=== PATIENT | female | born 1995 | race Caucasian/White ===

== ENCOUNTER 2020-01-26 03:58 | Inpatient (IN) ==
[2020-01-26] MEDS ORDERED: LACTATED RINGERS 500 ML IV PRN (04:09)
[2020-01-26] MEDS ORDERED: BUTORPHANOL 2 MG/ML VIAL IV PRN (04:09)
[2020-01-26] MEDS ORDERED: ONDANSETRON 4 MG/2 ML VIAL IV PRN (04:09)
[2020-01-26] MEDS ORDERED: MEPERIDINE 50 MG/1 ML VIAL IV PRN (04:09)
[2020-01-26] MEDS ORDERED: LACTATED RINGERS 1,000 ML IV SCH (04:30)
[2020-01-26] MEDS ORDERED: OXYTOCIN/LR 20 UNIT/1,000 ML BAG IV SCH (05:00)
[2020-01-26 05:10] LABS: Basophils # 0.1 10*3/uL (0.0-0.2); Basophils % 0.4 % (0.0-0.8); Eosinophils # 0.1 10*3/uL (0.0-0.87); Eosinophils % 0.6 % (0.00-10.9); Hematocrit 33.4 VOL% (35.7-47.0); Hemoglobin 11.3 GM/DL (12.0-16.0); Immature Granulocytes % 0.5 %; Immature Granulocytes Absolute 0.06 #; Lymphocytes # 2.9 10*3/uL (1.4-4.0); Lymphocytes % 23.8 % (21.3-54.2); Mean Corpuscular HGB Conc 33.8 GM/DL (32-36); Mean Corpuscular Volume 89.3 FL (87-102); Monocytes % 8.4 % (1.7-12.7); Neutrophils % 66.3 % (38.7-73.9); Platelet Count 254 T/CUMM (130-400); Red Blood Count 3.74 MC/CUMM (3.8-5.5); Red Cell Distribution Width 12.4 % (9.3-17.3)
[2020-01-26 05:35] LABS: Albumin 2.8 G/DL (3.4-5.0); Bilirubin,Total 0.7 MG/DL (0.2-1.0); Calcium 9.2 MG/DL (8.5-10.1); Osmolality,Calculated 270.8 MOS/KG (273-304)
[2020-01-26] MEDS ORDERED: ALUMINUM/MAGNES/SIMETH MAX STR 30 ML UDCUP PO PRN (05:42)
[2020-01-26] MEDS ORDERED: diphenhydrAMINE 50 MG/1 ML VIAL IV PRN ×2 (09:09)
[2020-01-26] MEDS ORDERED: FAMOTIDINE 20 MG/2 ML VIAL IV ONE (09:09)
[2020-01-26] MEDS ORDERED: CITRIC ACID/SODIUM CITRATE 30 ML UDCUP PO ONE (09:09)
[2020-01-26] MEDS ORDERED: ONDANSETRON 4 MG/2 ML VIAL IV ONE (09:09)
[2020-01-26] MEDS ORDERED: LACTATED RINGERS 1,000 ML IV ONE (09:09)
[2020-01-26] MEDS ORDERED: NALOXONE 0.4 MG/ML VIAL IV PRN (09:09)
[2020-01-26] MEDS ORDERED: ePHEDrine 50 MG/ML VIAL IV PRN (09:09)
[2020-01-26] MEDS ORDERED: PROMETHAZINE 25 MG/1 ML VIAL IM ONE (09:09)
[2020-01-26] MEDS ORDERED: hydrOXYzine HCL 25 MG/1 ML VIAL IM PRN (09:09)
[2020-01-26] MEDS ORDERED: fentaNYL 2 MCG/ROPIV 0.2% EPID 100 ML EPIDURAL ONE (09:16)
[2020-01-26] MEDS: fentaNYL 2 MCG/ROPIV 0.2% EPID 100 ML EPIDURAL SCH ×2 (09:45→15:16)
[2020-01-26 11:43] LABS: Apearance,Urine CLEAR (Clear); Bilirubin,Urine Negative (Negative); Blood, Urine Negative (Negative); Glucose,Urine (UA) Negative (Negative); Ketones,Urine Negative (Negative); Mucus,Urine Occasional /LPF (Occasional); Nitrite,Urine Negative (Negative); Protein,Urine Negative; RBC,Urine <1 /HPF (0-4); Squamous Epithelial Cell,Urine Occasional /HPF (0-10); Urine Color Straw (Yellow); Urine Specific Gravity 1.012 (1.001-1.035); Urine Urobilinogen < 2.0 EU/DL (0.2-1.0); WBC,Urine <1 /HPF (0-6)
[2020-01-26] MEDS ORDERED: TRANEXAMIC ACID 1,000 MG/10 ML VIAL ONE (16:15)
[2020-01-26] MEDS ORDERED: CARBOPROST TROMETHAMINE 250 MCG/ML AMP IM ONE (16:15)
[2020-01-26] MEDS ORDERED: METHYLERGONOVINE 0.2 MG/1 ML AMP ONE (16:15)
[2020-01-26] MEDS ORDERED: miSOPROStoL 200 MCG TABLET ONE (16:15)
[2020-01-26] MEDS ORDERED: LIDOCAINE 1% 50 ML VIAL ONE (16:16)
[2020-01-26] MEDS ORDERED: SODIUM CHLORIDE 0.9% 0 ML IV ONE (16:16)
[2020-01-26 17:36] LABS: Cord Arterial Blood HCO3 17.1 MMOL/L
[2020-01-26 17:39] LABS: Cord Venous Blood HCO3 17.2 MMOL/L; Cord Venous Blood PCO2 42.4 MMHG; Cord Venous Blood PO2 32.1
[2020-01-26] MEDS ORDERED: OXYTOCIN/LR 20 UNIT/1,000 ML BAG IV ONE (19:26)
[2020-01-26] MEDS ORDERED: WITCH HAZEL PADS 100/JAR TOP PRN (19:26)
[2020-01-26] MEDS ORDERED: LANOLIN 50% CREAM 0.3 OZ TUBE TOP PRN (19:26)
[2020-01-26] MEDS ORDERED: DIPH/TET/ACEL PERT BOOSTER VACCINE 0.5 ML VIAL IM ONE (19:26)
[2020-01-26] MEDS ORDERED: ACETAMINOPHEN 325 MG TABLET PO PRN (19:26)
[2020-01-26] MEDS ORDERED: MEASLES/MUMPS/RUBELLA VACCINE 0.5 ML VIAL SUBCUT ONE (19:26)
[2020-01-26] MEDS ORDERED: oxyCODONE/ACETAMINOPHEN 5-325 MG TABLET PO PRN (19:26)
[2020-01-26] MEDS ORDERED: BISACODYL 10 MG SUPP RECTAL PRN (19:26)
[2020-01-26] MEDS ORDERED: HYDROCORTISONE 2.5% RECTAL CREAM 30 GM TUBE TOP PRN (19:26)
[2020-01-26] MEDS ORDERED: BENZOCAINE 20%/MENTHOL 0.5% SPRAY 56 GM CAN TOP PRN (19:26)
[2020-01-26] MEDS ORDERED: RHO(D) IMMUNE GLOBULIN 300 MCG SYRINGE IM ONE (19:26)
[2020-01-26] MEDS: IBUPROFEN 800 MG TABLET PO PRN (19:34)
[2020-01-26] MEDS: DOCUSATE SODIUM 100 MG CAPSULE PO SCH (22:11)
[2020-01-27 05:30] LABS: Basophils # 0.1 10*3/uL (0.0-0.2); Basophils % 0.4 % (0.0-0.8); Eosinophils % 0.2 % (0.00-10.9); Hematocrit 31.6 VOL% (35.7-47.0); Hemoglobin 10.6 GM/DL (12.0-16.0); Immature Granulocytes % 0.5 %; Immature Granulocytes Absolute 0.08 #; Lymphocytes # 2.5 10*3/uL (1.4-4.0); Lymphocytes % 14.1 % (21.3-54.2); Mean Corpuscular HGB Conc 33.5 GM/DL (32-36); Mean Corpuscular Volume 91.1 FL (87-102); Mean Platelet Volume 10.7 FL (9.6-12.0); Monocytes % 9.2 % (1.7-12.7); Neutrophils % 75.6 % (38.7-73.9); Platelet Count 198 T/CUMM (130-400); Red Blood Count 3.47 MC/CUMM (3.8-5.5); Red Cell Distribution Width 12.6 % (9.3-17.3); White Blood Count 17.4 T/CUMM (4-12)
[2020-01-27] MEDS: DOCUSATE SODIUM 100 MG CAPSULE PO SCH ×2 (07:28→21:51)
[2020-01-27] MEDS: oxyCODONE/ACETAMINOPHEN 5-325 MG TABLET PO PRN ×2 (07:28→18:01)
[2020-01-27] MEDS: IBUPROFEN 800 MG TABLET PO PRN (11:02)
[2020-01-28] MEDS: IBUPROFEN 800 MG TABLET PO PRN ×2 (01:53→14:51)
[2020-01-28] MEDS: oxyCODONE/ACETAMINOPHEN 5-325 MG TABLET PO PRN (03:31)
[2020-01-28] MEDS: DOCUSATE SODIUM 100 MG CAPSULE PO SCH (08:35)
[2020-01-28 12:33] VITALS: BP 104/58
== END 2020-01-28 15:50 | disposition home or self-care (01) | DRG 807 ==
LOC: N.LDOUT 03:58 → N.LD 04:01 → N.OB 21:18
PROVIDERS: ADMIT Obstetrics & Gynecology; ATTEND Obstetrics & Gynecology